=== PATIENT | male | born 1995 | race Caucasian/White ===

== ENCOUNTER 2017-02-18 01:02 | Emergency (ER) | payer SELFPAY ==
[~2017-02-18] VITALS: Ht 185.4 cm; Wt 99.2 kg
[~2017-02-18 01:02] MED LIST: DXY100 PO; SULF-183 PO
[2017-02-18 01:16] VITALS: TEMP 36.9; Ht 185.4 cm; Wt 99.2 kg
[2017-02-18] MEDS ORDERED: SODIUM CHLORIDE 0.9% 1000ML 1,000 ML IV STA (01:38)
[2017-02-18] MEDS ORDERED: ONDANSETRON 8 MG/54 ML D5W IV STA (01:38)
--- NOTE | 2017-02-18 01:48 | EMERGENCY ROOM VISIT NOTE ---
History Report prepared by Karolina: Rocky Thompson Under the Supervision of: Chanel GreenbergO. First contact with patient: 01:19 Chief Complaint: BITE Stated Complaint: BITE History of Present Illness The patient is a 21 year old male who presents to the Emergency Room with complaints of a bite on the right inner thigh that happened 1 week ago. He does not remember what bit him. It started out as a small red bump and has worsened, growing in size with increasing redness. He saw a doctor a couple of days ago, when the bite was smaller, and they thought it was cellulitis. He was placed onto Doxycycline, which he started yesterday. He has been nauseated and vomiting since he started the antibiotics, which has never happened to him before. He also has been having chills with diaphoresis and body aches. He denies any fevers or abdominal pain. Source of History: patient Onset: 1 week ago Position: leg (right inner thigh) Symptom Intensity: moderate Quality: other (Bite) Timing: resolved Associated Symptoms: + chills, + diaphoresis, + nausea, + vomiting, + rash, No fevers, No abdominal pain Review of Systems See HPI for pertinent positives & negatives. A total of 10 systems reviewed and were otherwise negative. Past Medical & Surgical Medical Problems: (1) No Known Active Medical Problems Family History Diabetes mellitus FHx: cancer Heart disease Hypertension Social History Smoking Status: Current Every Day Smoker Smokeless Tobacco Use: Unknown Drug Use: none Marital Status: single Occupation Status: student Current/Historical Medications Scheduled Doxycycline Hyclate (Doxycycline Hyclate), 100 MG PO DAILY Doxycycline Monohydrate (Monodox), 100 MG PO BID Ondasetron Odt (Zofran Odt), 4 MG SL Q6H Sulfamethoxazole-Trimethoprim (Smz-Tmp Ds), 1 TAB PO BID Allergies Coded Allergies: No Known Allergies (Unverified , 02/18/17) Physical Exam Vital Signs Date Time Temp Pulse Resp B/P (MAP) Pulse Ox O2 Delivery O2 Flow Rate FiO2 02/18/17 02:53 92 18 170/67 99 02/18/17 01:16 36.9 113 18 122/84 96 Room Air Physical Exam GENERAL: alert, anxious appearing, well nourished, no distress, non-toxic EYE EXAM: normal conjunctiva, PERRL and EOM's grossly intact OROPHARYNX: no exudate, no erythema, lips, buccal mucosa, and tongue normal and mucous membranes are moist NECK: supple, no nuchal rigidity, no adenopathy, non-tender LUNGS: Clear to auscultation. Normal chest wall mechanics HEART: no murmurs, S1 normal and S2 normal ABDOMEN: abdomen soft, non-tender, normo-active bowel sounds, no masses, no rebound or guarding. BACK: Back is symmetrical on inspection and there is no deformity, no midline tenderness, no CVA tenderness. SKIN: no rashes and no bruising UPPER EXTREMITIES: upper extremities are grossly normal. LOWER EXTREMITIES: No pitting edema. Proximal medial right lower extremity with erythema and expanding circumferential pattern consistent with bulls eye rash, no area of fluctuance, small area of induration centrally, no discharge, no active draining, no other rashes or sores, no other joint effusions. NEURO EXAM: Normal sensorium, cranial nerves II-XII grossly intact, normal speech, no gross weakness of arms, no gross weakness of legs. Medical Decision & Procedures Laboratory Results 02/18/17 01:46 Red Blood Count 5.25, Mean Corpuscular Volume 92.6, Mean Corpuscular Hemoglobin 33.1, Mean Corpuscular Hemoglobin Concent 35.8, Mean Platelet Volume 9.9, Neutrophils (%) (Auto) 57.7, Lymphocytes (%) (Auto) 27.7, Monocytes (%) (Auto) 10.5, Eosinophils (%) (Auto) 3.4, Basophils (%) (Auto) 0.6, Neutrophils # (Auto ) 4.14, Lymphocytes # (Auto) 1.98, Monocytes # (Auto) 0.75, Eosinophils # (Auto ) 0.24, Basophils # (Auto) 0.04 02/18/17 01:46 Test 02/18/17 01:46 White Blood Count 7.16 K/uL (4.8-10.8) Red Blood Count 5.25 M/uL (4.7-6.1) Hemoglobin 17.4 g/dL (14.0-18.0) Hematocrit 48.6 % (42-52) Mean Corpuscular Volume 92.6 fL (80-100) Mean Corpuscular Hemoglobin 33.1 pg (25-34) Mean Corpuscular Hemoglobin Concent 35.8 g/dl (32-36) Platelet Count 218 K/uL (130-400) Mean Platelet Volume 9.9 fL (7.4-10.4) Neutrophils (%) (Auto) 57.7 % Lymphocytes (%) (Auto) 27.7 % Monocytes (%) (Auto) 10.5 % Eosinophils (%) (Auto) 3.4 % Basophils (%) (Auto) 0.6 % Neutrophils # (Auto) 4.14 K/uL (1.4-6.5) Lymphocytes # (Auto) 1.98 K/uL (1.2-3.4) Monocytes # (Auto) 0.75 K/uL (0.11-0.59) Eosinophils # (Auto) 0.24 K/uL (0-0.5) Basophils # (Auto) 0.04 K/uL (0-0.2) RDW Standard Deviation 39.8 fL (36.4-46.3) RDW Coefficient of Variation 11.8 % (11.5-14.5) Immature Granulocyte % (Auto) 0.1 % Immature Granulocyte # (Auto) 0.01 K/uL (0.00-0.02) Anion Gap 6.0 mmol/L (3-11) Est Creatinine Clear Calc Drug Dose 120.7 ml/min Estimated GFR () 99.6 Estimated GFR (Non- 85.9 BUN/Creatinine Ratio 20.3 (10-20) Calcium Level 9.7 mg/dl (8.5-10.1) Total Bilirubin 1.1 mg/dl (0.2-1) Aspartate Amino Transf (AST/SGOT) 22 U/L (15-37) Alanine Aminotransferase (ALT/SGPT) 39 U/L (12-78) Alkaline Phosphatase 78 U/L (45-117) Total Creatine Kinase 179 U/L (39-308) Total Protein 8.2 gm/dl (6.4-8.2) Albumin 4.6 gm/dl (3.4-5.0) Globulin 3.6 gm/dl (2.5-4.0) Albumin/Globulin Ratio 1.3 (0.9-2) Laboratory results per my review. Medications Administered Medications (Trade) Dose Ordered Sig/Zak Route Start Time Stop Time Status Last Admin Dose Admin Sodium Chloride 1,000 ml @ 999 mls/hr Q1H1M STAT IV 02/18/17 01:38 02/18/17 02:38 DC 02/18/17 01:59 999 MLS/HR Ondansetron HCl (Zofran 8mg Iv) 8 mg NOW STAT IV 02/18/17 01:38 02/18/17 01:40 DC 02/18/17 01:59 8 MG Al Hydroxide/Mg Hydroxide (Maalox Susp) 30 ml NOW STAT PO 02/18/17 02:01 02/18/17 02:02 DC 02/18/17 02:13 30 ML ED Course 0119: The patient was evaluated in room B3. A complete history and physical exam was performed. 0138: Ordered Ondansetron HCl 8 mg IV, Sodium Chloride 1000 ml @ 999 mls/hr IV 0201: Ordered Maalox Susp 20 ml PO 0230: Upon reevaluation, the patient is feeling better. I discussed the findings and the treatment plan with the patient. He verbalizes agreement and understanding. He was discharged home. Medical Decision Differential diagnosis: Etiologies such as contact dermatitis, viral exanthem, urticaria, allergic reaction, Thurman-Byron syndrome, toxic epidermal necrolysis, erythema multiforme, cellulitis, scabies, HSV, varicella, zoster, eczema, staph scalded skin syndrome, fungal infection, lyme disease, as well as others were entertained. Appearance of patient's rash consistent with erythema migrans more so than cellulitis. Patient recent started on doxycycline which would cover for both diagnoses. No evidence of fevers or significant leukocytosis, doubt bacteremia/ sepsis, no extension into the groin, no other rashes or sores. Patient with other mild systemic symptoms although is extremely anxious on exam here, discussed possibility of Lyme's manifestation given body aches. Patient written for additional doxycycline his initial course is only from one week, additional doxycycline added and patient instructed he would need to take for an entire 3 weeks. Discussed possible adverse reactions with doxycycline also. Discussed follow-up with family doctor, symptoms to watch and return for, he verbalized understanding was agreeable with plan. Rash otherwise not consistent with SJS/TEN, not consistent with herpes virus, no drainable abscess noted. Medication Reconcilliation Current Medication List: was personally reviewed by me Blood Pressure Screening Patient's blood pressure: Normal blood pressure Impression Primary Impression: Erythema migrans (Lyme disease) Additional Impression: Insect bites Scribe Attestation The scribe's documentation has been prepared under my direction and personally reviewed by me in its entirety. I confirm that the note above accurately reflects all work, treatment, procedures, and medical decision making performed by me. Departure Information Dispostion Home / Self-Care Prescriptions Doxycycline Monohydrate (Monodox) 100 Mg Cap 100 MG PO BID for 14 Days, #28 CAP Prov: Elizbaeth Kidd, DO 02/18/17 Ondasetron Odt (ZOFRAN ODT) 4 Mg Tab 4 MG SL Q6H for Nausea, #20 TAB Prov: Elizabeth Kidd, DO 02/18/17 Referrals No Doctor, Assigned (PCP) Forms HOME CARE DOCUMENTATION FORM, IMPORTANT VISIT INFORMATION Patient Instructions My [facility] Additional Instructions Please take the nausea medication as needed. Please continue the antibiotics. You need to take the doxycycline for 3 weeks. This may give you an upset stomach, bad heartburn, and makes your skin sensitive to sunlight. Do not spend prolonged time in the sun as you will have increased redness to your skin. If you have any vomiting, fevers, joint pain, diarrhea, increased redness to the rash, develop other rash/sores, or you have any other new or concerning symptoms, please return to the emergency room. Problem Qualifiers Additional Impression: Insect bites Encounter type: initial encounter Qualified Codes: W57.XXXA - Bitten or stung by nonvenomous insect and other nonvenomous arthropods, initial encounter
[2017-02-18 01:57] LABS: BASO % 0.6 %; BASO ABS # 0.04 K/uL (0-0.2); COMPLETE YES; EOS % 3.4 %; HEMATOCRIT 48.6 % (42-52); IG% 0.1 %; LYMPH % 27.7 %; LYMPH ABS # 1.98 K/uL (1.2-3.4); MEAN CELL VOLUME 92.6 fL (80-100); MEAN CORPUSCULAR HEMOGLOBIN 33.1 pg (25-34); MEAN CORPUSCULAR HGB CONC 35.8 g/dl (32-36); MEAN PLATELET VOLUME 9.9 fL (7.4-10.4); MONO % 10.5 %; NEUT % 57.7 %; PLATELET COUNT 218 K/uL (130-400); RED BLOOD COUNT 5.25 M/uL (4.7-6.1); WHITE BLOOD COUNT 7.16 K/uL (4.8-10.8)
[2017-02-18] MEDS ORDERED: ALUMINUM/MAGNESIUM SUSP 30 ML UDC PO STA (02:01)
[2017-02-18 02:17] LABS: BUN/CREATININE RATIO 20.3 (10-20); CALCIUM 9.7 mg/dl (8.5-10.1); CREATININE 1.2 mg/dl (0.60-1.40)
[2017-02-18 02:19] LABS: ALB/GLOB RATIO 1.3 (0.9-2)
[2017-02-18] MEDS ORDERED: ONDA4TAB10 SL (02:22)
[2017-02-18] MEDS ORDERED: DOXY100C76 PO (02:26)
[2017-02-18 02:53] VITALS: BP 170/67; PULSE 92; O2SAT 99
== END 2017-02-18 02:54 | disposition home or self-care (01) ==
LOC: C.EDB 01:04
DX: A26.0 Cutaneous erysipeloid (principal); W57.XXXA Bitten or stung by nonvenomous insect and other nonvenomous arthropods, initial encounter; F17.200 Nicotine dependence, unspecified, uncomplicated; Z79.899 Other long term (current) drug therapy; Z83.3 Family history of diabetes mellitus; Z80.9 Family history of malignant neoplasm, unspecified; Z82.49 Family history of ischemic heart disease and other diseases of the circulatory system

== ENCOUNTER 2017-07-26 02:12 | Emergency (ER) | payer BC, OTHER ==
[~2017-07-26] VITALS: Ht 185.4 cm; Wt 99.3 kg
[~2017-07-26 02:12] MED LIST changes: +ONDA4TAB10 SL
[2017-07-26 02:14] VITALS: TEMP 36.7; Ht 185.4 cm; Wt 99.3 kg
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
[2017-07-26] MEDS ORDERED: CYCL10TA6 PO (03:11)
[2017-07-26] MEDS ORDERED: FLEXERIL HOME PACK 10 MG VIAL PO ONE (03:15)
[2017-07-26 03:42] VITALS: BP 125/65; PULSE 78; O2SAT 98
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
== END 2017-07-26 03:38 | disposition home or self-care (01) ==
LOC: C.EDB 02:14
DX: S16.1XXA Strain of muscle, fascia and tendon at neck level, initial encounter (principal); S06.0X9A Concussion with loss of consciousness of unspecified duration, initial encounter; V89.2XXA Person injured in unspecified motor-vehicle accident, traffic, initial encounter; M62.838 Other muscle spasm; F17.200 Nicotine dependence, unspecified, uncomplicated; R03.0 Elevated blood-pressure reading, without diagnosis of hypertension; Z83.3 Family history of diabetes mellitus; Z82.49 Family history of ischemic heart disease and other diseases of the circulatory system